=== PATIENT | male | born 1950 | race Caucasian/White ===

== ENCOUNTER 2022-12-12 10:37 | Emergency (ER) | payer MEDICARE, OTHER, SELFPAY ==
[2022-12-12 10:39] VITALS: BP 129/61; PULSE 71; RESP 16; TEMP 36.2; O2SAT 98; BMI 28.2
--- NOTE | 2022-12-12 10:51 | RAD_ITS ---
STUDY: X-RAY CHEST REASON FOR EXAM: Male, 72 years old. Cough TECHNIQUE: Single AP portable view of the chest. COMPARISON: None. FINDINGS: Postoperative changes in the lower neck. The lungs are clear and expanded. There is no demonstrated pleural abnormality. Normal size heart. There are calcified mediastinal lymph nodes. Normal visualized pulmonary arteries. Normal visualized aortic arch and descending thoracic aorta. There are diffuse degenerative changes of the visualized thoracic spine. Normal visualized ribs, clavicles, and shoulders. There is no demonstrated abnormality of the visualized soft tissue structures of the upper abdomen. RAD/Chest 1 View IMPRESSION: Degenerative changes, as described above. No demonstrated acute cardiopulmonary process. Electronically Signed: Tito Godinez MD at 13:36 EDT ,
[2022-12-12 10:52] VITALS: O2SAT 95
--- NOTE | 2022-12-12 10:52 | EX.ED.DYSGE1 ---
HPI History of Present Illness Chief Complaint: Cold Sx Detail of Chief Complaint: Cough Informant: patient Narrative Narrative: Patient presents to the emergency department with complaint of not feeling well for about 5 days. Patient came down with a cough 5 days ago. Patient seen at urgent care recently and apparently had a COVID test but no results and PCP could not find results when he called today. This morning patient woke up he had some blood in his nose and drainage from his right eye and seemed somewhat confused per his . She called his PCP and they were advised to be evaluated in the emergency department. Patient is never had a COVID-vaccine. He has been in and out of doctors offices recently but they are unsure if he has had any sick contacts although his [id number] had a cough recently. Cough became somewhat productive of some green phlegm this morning. Patient has history of prior stroke and history of some expressive aphasia. He does have history of being on Eliquis. [facility] Medical History (Updated 12/12/22 @ 12:[address] Tsering Gudino, ) Atrial fibrillation Stroke Home Medications doxycycline monohydrate 100 mg capsule 100 mg PO BID #20 CAPSULES 12/12/22 [Rx Last Taken Unknown] Allergy/AdvReac Type Severity Reaction Status Date / Time Penicillins Allergy UNKNOWN Verified 12/12/22 10:51 Social History Smoking Status: Current some day smoker tobacco type: cigarettes ROS ROS ED Review of Systems ROS Unobtainable: other Constitutional Constitutional ED: Reports lethargy; Denies chills, fever(s), sweats or weight loss Eyes Eyes: Denies blurry vision, change in vision or diplopia ENT ENT ED: Denies rhinorrhea or sore throat Cardiovascular Cardiovascular: Denies chest pain, orthopnea or racing heartbeat Respiratory/Chest Respiratory/Chest: Reports cough and sputum; Denies dyspnea, dyspnea on exertion or orthopnea Gastrointestinal Gastrointestinal: Denies abdominal pain, diarrhea, nausea or vomiting Genitourinary Genitourinary ED: Denies dysuria, hematuria or urinary frequency Musculoskeletal Musculoskeletal: Denies arthralgias, back pain, myalgias or neck pain Integumentary Denies abscess, Abrasions or rash Neurologic Neurologic: Denies headache(s) or weakness Psychiatric Psychiatric: Denies anxiety, depression or suicidal thoughts Endocrine Endocrinology: Denies polydipsia, polyphagia or polyuria Hematologic/Lymphatic Hematologic/Lymphatic: Denies easy bleeding, easy bruising or lymphadenopathy Allergic/Immunologic Allergic/Immunologic ED: Denies mouth swelling, tongue swelling or urticaria EXAM Physical Exam Const Vital Signs: 12/12/22 10:39 12/12/22 10:52 12/12/22 10:52 Temperature 97.2 F L Temperature Source Temporal Pulse Rate 71 Respiratory Rate 16 Respiratory Effort Normal Non-Labored Normal Non-Labored Respiratory Depth Normal Respiratory Pattern Normal Normal Blood Pressure 129/61 H Blood Pressure Mean 83 Pulse Ox 98 Oxygen Delivery Method Room Air Room Air 12/12/22 11:01 Temperature 98.5 F Temperature Source Oral Pulse Rate 67 Respiratory Rate 18 Respiratory Effort Respiratory Depth Respiratory Pattern Blood Pressure 117/54 L Blood Pressure Mean 75 Pulse Ox 94 Oxygen Delivery Method Room Air Positive well nourished and well developed General Appearance ED: well developed and NAD HEENT Reports TM's clear and moist mucous membranes HEENT Narrative: Right conjunctiva slightly erythematous and he does have some purulent drainage from the right eye. No blood noted in the nasal vaults. There is some yellowish discharge in both nasal vaults. normocephalic and atraumatic; Negative for trauma or tenderness Tympanic Membrane ED: Yes TM's clear Eyes PERRL and EOMs intact bilaterally General Eye ED: Negative for pale conjunctiva or scleral icterus Neck no lymphadenopathy, supple and no JVD General: Negative for tenderness Chest Wall inspection of chest normal and palpation of chest normal Chest: Negative for tenderness Resp normal respiratory effort and clear to auscultation bilaterally Resp Narrative: Good aeration bilaterally. No tachypnea. No rales or wheezes noted. Effort and Inspection: Negative for respiratory distress or pain with movement Auscultation: Negative for rhonchi, wheezes or diminished lung sounds Cardio regular rate, regular rhythm, S1 normal heart sound, S2 normal heart sound and no murmurs Peripheral Pulses: pulses 2+ throughout GI normal to inspection, nondistended, normoactive bowel sounds, soft to palpation, non-tender, non-distended and no masses Back/Spine no CVA tenderness and no thoracic nor lumbar tenderness Extremity normal to inspection General Extremety ED: Negative for edema General Extremity: Negative for edema Neuro oriented x3, CN's II-XII intact bilaterally, no sensory deficits noted and gait normal Sensorium / Orientation: awake, alert, oriented to person, oriented to place and oriented to time Motor Exam: strength 5/5 throughout and strength abnormal Psych mental status grossly normal Skin no rashes or lesions noted and no wounds MDM MDM MDM Narrative Medical decision making narrative: Patient presents with 5-day history of cough and runny nose and will green sputum production. Denies fever. He was seen in urgent care and was ordered prednisone. Patient had a COVID test and influenza test that were negative here. 1 view chest x-ray obtained interpreted by myself as no evidence of infiltrate or acute disease process. Clinically patient looks well. He does have a conjunctivitis. Will cover with gentamicin ophthalmic drops. Also given that the cough appears to be worsening and now has productive sputum will cover with doxycycline. Patient advised to follow-up with primary care physician within next 5 to 7 days. He is to return if increasing shortness of breath or condition should worsen anyway. Lab Data Attestation: I reviewed the patient's lab results. Radiography Chest X-Ray - ED: 1 View Diagnostic Testin view chest x-ray obtained interpreted by myself as no evidence of infiltrate or pneumothorax or acute disease process. Official report from radiology pending. Discharge Plan Triage Chief Complaint: Cold Sx ED Provider: Tsering Gudino Dx/Rx/DC Orders Clinical Impression: Upper respiratory infection, Conjunctivitis Instructions: ED Upper Resp Infec Abx Tx, ED Conjunctivitis, Nonspecific Prescriptions: New doxycycline monohydrate 100 mg capsule 100 mg PO BID Qty: 20 0RF Primary Care Provider: Betzaida Hannon Referrals: [facility] Doctor,Out of [Non-Staff] - Disposition Disposition: Home, Self Care
[2022-12-12 11:01] VITALS: BP 117/54; PULSE 67; RESP 18; TEMP 36.9; O2SAT 94
[2022-12-12 12:08] VITALS: BP 113/52; PULSE 57; RESP 17; O2SAT 97
[2022-12-12] MEDS: Doxycycline 100 MG CAPSULE PO (12:13)
[2022-12-12] MEDS: Gentamicin Sulfate 1 OPTH.BTL 2 DRP EACH EYE (12:13)
== END 2022-12-12 13:07 | disposition home or self-care (01) ==
PROVIDERS: Emergency Provider Emergency Medicine; PCP Internal Medicine; Visit Provider Emergency Medicine
DX: J06.9 Acute upper respiratory infection, unspecified (principal); H10.9 Unspecified conjunctivitis; F17.210 Nicotine dependence, cigarettes, uncomplicated; Z86.73 Personal history of transient ischemic attack (TIA), and cerebral infarction without residual deficits
CPT/HCPCS: 71045; 87428; 99284